=== PATIENT | female | born 1980 | race Caucasian/White ===

== ENCOUNTER 2017-02-21 03:18 | Emergency (ER) | payer OTHER ==
[2017-02-21 03:18] VITALS: BMI 20.6
[2017-02-21 03:31] VITALS: RESP 14; TEMP 98.4
--- NOTE | 2017-02-21 04:18 | C.PDOC ---
History Of Present Illness 37 y/o female, with no significant PMHx, presents to the ED for evaluation of burning sensation to bilateral eyes. Pt states she was cleaning with chlorox, and accidentally sprayed some into her eyes. Also complaints of frontal headache. Otherwise, denies visual changes, swelling, redness, dizziness, nausea , vomiting, or fever. Time Seen by Provider: 02/21/17 03:38 Chief Complaint (Nursing): Eye Problem History Per: Patient History/Exam Limitations: no limitations Onset/Duration Of Symptoms: Hrs Current Symptoms Are (Timing): Still Present Injury To Eye?: No Quality: "Pain" Associated Symptoms: Itching. denies: Decreased Vision, Swelling, FB Sensation , Discharge From Eye Recent travel outside of the [place]: No Additional History Per: Patient Past Medical History Reviewed: Historical Data, Nursing Documentation, Vital Signs Vital Signs: Last Vital Signs Temp 98.4 F 02/21/17 03:23 Pulse 80 02/21/17 06:10 Resp 14 02/21/17 06:10 BP 110/80 02/21/17 06:10 Pulse Ox 99 02/21/17 06:10 - Medical History PMH: Diabetes ("I THINK SO") Denies: Chronic Kidney Disease Surgical History: - [facility] Procedures SUTURE VAGINA LACERATION (06/04/14) Family History: States: Unknown Family Hx - Social History Hx Tobacco Use: Yes Hx Alcohol Use: No Hx Substance Use: No - Immunization History Hx Tetanus Toxoid Vaccination: No Hx Influenza Vaccination: No Hx Pneumococcal Vaccination: No Review Of Systems Except As Marked, All Systems Reviewed And Found Negative. Constitutional: Negative for: Fever, Chills Eyes: Positive for: Pain (burning sensation). Negative for: Vision Change, Conjunctivae Inflammation, Eyelid Inflammation, Redness Gastrointestinal: Negative for: Nausea, Vomiting Neurological: Positive for: Headache. Negative for: Weakness, Numbness, Dizziness Physical Exam - Physical Exam Appears: Non-toxic, No Acute Distress Skin: Normal Color, Warm, Dry Head: Atraumatic, Normacephalic Eye(s): bilateral: Normal Inspection (Normal conjunctiva), PERRL, EOMI Neck: Normal ROM, Supple Chest: Symmetrical Extremity: Normal ROM Neurological/Psych: Oriented x3, Normal Speech, Normal Cognition ED Course And Treatment O2 Sat by Pulse Oximetry: 98 Pulse Ox Interpretation: Normal Progress Note: Pt was given Toradol. On re-exam at 6:00, patient reports feeling much better after irrigation with normal saline. States her symptoms have resolved. Disposition - Disposition Referrals: Abdon Posada [Staff Provider] - Disposition: HOME/ ROUTINE Disposition Time: 06:08 Condition: IMPROVED Instructions: [facility] (ED) Forms: General Discharge Instructions - Clinical Impression Clinical Impression: Irritation of both eyes - Scribe Statement The provider has reviewed the documentation as recorded by the Scribe Francesca Capone All medical record entries made by the Udayibe were at my direction and personally dictated by me. I have reviewed the chart and agree that the record accurately reflects my personal performance of the history, physical exam, medical decision making, and the department course for this patient. I have also personally directed, reviewed, and agree with the discharge instructions and disposition.
[2017-02-21] MEDS ORDERED: Fluorescein 1 mg Ophthalmic Strip ONE (04:29)
[2017-02-21] MEDS ORDERED: Tetracaine 0.5% Ophth (OR ONLY) ONE (04:29)
[2017-02-21 06:10] VITALS: BP 110/80; PULSE 80
[2017-02-28 23:21] VITALS: O2SAT 98
== END 2017-02-21 06:08 | disposition home or self-care (01) ==
LOC: C.ER 03:18
DX: H57.8 Other specified disorders of eye and adnexa (principal)
CPT/HCPCS: 96372; 99284; J1885

== ENCOUNTER 2018-02-26 18:45 | Emergency (ER) | payer OTHER ==
[2018-02-26 18:57] VITALS: BMI 20.7
[2018-02-26 19:00] VITALS: BP 111/72; PULSE 76; RESP 18; TEMP 99.1; O2SAT 100
--- NOTE | 2018-02-26 19:39 | C.PDOC ---
History Of Present Illness 38 y/o female presents to the ER complaining of right thumb pain for 1 week. Patient states that the pain began when she pushed a housekeeping cart and vacuum at the same time and felt her thumb bend back a week ago. Since then, pt notes she has pain with certain movement and putting pressure on it. Denies having weakness and numbness. Right hand dominant. Time Seen by Provider: 02/26/18 19:02 Chief Complaint (Nursing): Finger,Hand,&Wrist History Per: Patient History/Exam Limitations: no limitations Onset/Duration Of Symptoms: Days Current Symptoms Are (Timing): Still Present Past Medical History Reviewed: Historical Data, Nursing Documentation, Vital Signs Vital Signs: Last Vital Signs Temp 99.1 F 02/26/18 18:58 Pulse 76 02/26/18 18:58 Resp 18 02/26/18 18:58 BP 111/72 02/26/18 18:58 Pulse Ox 100 02/26/18 20:00 - Medical History PMH: Diabetes ("I THINK SO") Denies: Chronic Kidney Disease Surgical History: - [facility] Procedures SUTURE VAGINA LACERATION (06/04/14) Family History: States: No Known Family Hx - Social History Hx Tobacco Use: Yes Hx Alcohol Use: No Hx Substance Use: No - Immunization History Hx Tetanus Toxoid Vaccination: No Hx Influenza Vaccination: No Hx Pneumococcal Vaccination: No Review Of Systems Except As Marked, All Systems Reviewed And Found Negative. Musculoskeletal: Positive for: Other (right thumb pain) Neurological: Negative for: Weakness, Numbness Physical Exam - Physical Exam Appears: Non-toxic, No Acute Distress Skin: Normal Color, Warm, Dry Head: Atraumatic, Normacephalic Eye(s): bilateral: Normal Inspection, EOMI Nose: Normal Oral Mucosa: Moist Neck: Normal ROM, Supple Chest: Symmetrical Respiratory: No Accessory Muscle Use Extremity: No Normal ROM (aggravation with flexion of left first digit), Tenderness (tenderness to 1st MCP joint of left hand), Capillary Refill (<2 sec) , No Swelling Extremity: Bilateral: Normal Color And Temperature Pulses: Left Radial: Normal, Right Radial: Normal Neurological/Psych: Oriented x3, Normal Speech, Normal Sensation ED Course And Treatment O2 Sat by Pulse Oximetry: 100 (RA) Pulse Ox Interpretation: Normal Progress Note: X-Ray- Left Thumb ordered. SPlint applied by tire maintenance technician. Instructed to follow up with hand specialist in 1-2 days. Disposition - Disposition Referrals: Aarti Shoemaker MD [Staff Provider] - Disposition: HOME/ ROUTINE Disposition Time: 19:59 Condition: STABLE Additional Instructions: Follow up with your primary medical doctor or clinic in 2-5 days for further evaluation. Take medications as prescribed. Return to the emergency department at any time if symptoms persist or worsen. Prescriptions: Ibuprofen [Motrin] 400 mg PO Q6 PRN #20 tab PRN Reason: Fever Instructions: Finger Sprain (DC) Forms: [employer] (Uzbek), Work Excuse - Clinical Impression Clinical Impression: Thumb sprain - PA / DISABILITY RATER / Resident Statement MD/DO has reviewed & agrees with the documentation as recorded. - Scribe Statement The provider has reviewed the documentation as recorded by the Udayiblily Menchaca Provider Attestation All medical record entries made by the Udayibe were at my direction and personally dictated by me. I have reviewed the chart and agree that the record accurately reflects my personal performance of the history, physical exam, medical decision making, and the department course for this patient. I have also personally directed, reviewed, and agree with the discharge instructions and disposition.
[2018-02-26] MEDS ORDERED: Naproxen 550 mg Tab PO STA (20:01)
[2018-02-26] MEDS ORDERED: Naproxen 550 mg Tab PO ONE (20:06)
--- NOTE | 2018-02-27 09:27 | RAD ---
Date of service: 02/26/2018 PROCEDURE: Left Thumb radiographs. HISTORY: INJURY COMPARISON: None. TECHNIQUE: AP radiograph of the left hand, as well as spot oblique and lateral images of thumb were obtained. FINDINGS: LEFT THUMB: Normal left thumb, without fracture or focal lesion. Remainder of the left hand (as seen on the AP view) grossly unremarkable. JOINTS: Normal. SOFT TISSUES: Normal. OTHER FINDINGS: None. IMPRESSION: Normal left thumb radiographs.
== END 2018-02-26 20:09 | disposition home or self-care (01) ==
LOC: C.ER 18:45
DX: S63.602A Unspecified sprain of left thumb, initial encounter (principal); X50.0XXA Overexertion from strenuous movement or load, initial encounter; Y93.E9 Activity, other interior property and clothing maintenance; Y92.89 Other specified places as the place of occurrence of the external cause; Y99.8 Other external cause status

== ENCOUNTER 2018-03-07 08:27 | Emergency (ER) | payer OTHER ==
[2018-03-07 08:28] VITALS: BMI 20.7
[2018-03-07 08:36] VITALS: BP 103/67; PULSE 64; RESP 18; TEMP 98.5; O2SAT 99
--- NOTE | 2018-03-07 08:58 | C.PDOC ---
History Of Present Illness 38 year old female presents to ED for evaluation of itchy rash to left wrist and inner forearm that she noticed after waking up this morning. Patient also complains of burning sensation to left thumb ongoing since last ER visit. Notes she was seen here last week for work related injury to left thumb and had a splint applied. Notes taking Ibuprofen for pain. 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 Denies any new injury, weakness, numbness, or fever. Time Seen by Provider: 03/07/18 08:36 Chief Complaint (Nursing): Abnormal Skin Integrity History Per: Patient History/Exam Limitations: no limitations Onset/Duration Of Symptoms: Days Current Symptoms Are (Timing): Still Present Location Of Injury: Left: Forearm, Wrist Quality Of Symptoms: Itching. denies: Swollen Recent travel outside of the [place]: No Additional History Per: Patient Past Medical History Reviewed: Historical Data, Nursing Documentation, Vital Signs Vital Signs: Last Vital Signs Temp 98.5 F 03/07/18 08:33 Pulse 64 03/07/18 08:33 Resp 18 03/07/18 08:33 BP 103/67 03/07/18 08:33 Pulse Ox 99 03/07/18 09:05 - Medical History PMH: Diabetes ("I THINK SO") Denies: Chronic Kidney Disease Surgical History: - [facility] Procedures SUTURE VAGINA LACERATION (06/04/14) Family History: States: Unknown Family Hx - Social History Hx Tobacco Use: Yes Hx Alcohol Use: No Hx Substance Use: No - Immunization History Hx Tetanus Toxoid Vaccination: No Hx Influenza Vaccination: No Hx Pneumococcal Vaccination: No Review Of Systems Except As Marked, All Systems Reviewed And Found Negative. Constitutional: Negative for: Fever, Chills Musculoskeletal: Positive for: Hand Pain (left thumb) Skin: Positive for: Rash (left wrist, forearm) Neurological: Negative for: Weakness, Numbness Physical Exam - Physical Exam Appears: Non-toxic, No Acute Distress Skin: Warm, Dry, Rash (erythematous papular rash to left wrist and forearm, no vesicles) Head: Atraumatic, Normacephalic Eye(s): bilateral: Normal Inspection Oral Mucosa: Moist Extremity: No Normal ROM (painful flexion of left thumb), No Tenderness (no tenderness to left wrist or forearm), Capillary Refill (less than 2 seconds), No Deformity, No Swelling Pulses: Left Radial: Normal Neurological/Psych: Oriented x3, Normal Speech ED Course And Treatment O2 Sat by Pulse Oximetry: 99 (RA) Pulse Ox Interpretation: Normal Medical Decision Making Medical Decision Making: Impression: contact dermatitis and tendonitis Thumb spica splint applied by mechanical technical service specialist. Prednisone PO prescribed for both problems. Patient advised to rest thumb and follow up with orthopedic if the symptoms persists. Disposition Counseled Patient/Family Regarding: Diagnosis, Need For Followup - Disposition Referrals: Edison Zhao III, MD [Staff Provider] - Disposition: HOME/ ROUTINE Disposition Time: 09:10 Condition: STABLE Additional Instructions: Take Benadryl or apply cortisone for rash Keep splint in place for 1 week to help with tendonitis. Take Prednisone to help with both rash and hand pain Follow up with orthopedic if pain persists over one week. Prescriptions: predniSONE [predniSONE Tab] 40 mg PO DAILY #10 tab Instructions: Contact Dermatitis (DC), Tendonitis (DC) Forms: [employer] (Italian) - POA Present On Arrival: None - Clinical Impression Clinical Impression: Contact dermatitis, Tendonitis - PA / TELECINE OPERATOR / Resident Statement MD/DO has reviewed & agrees with the documentation as recorded. - Scribe Statement The provider has reviewed the documentation as recorded by the Scribe Francesca Capone All medical record entries made by the Scribe were at my direction and personally dictated by me. I have reviewed the chart and agree that the record accurately reflects my personal performance of the history, physical exam, medical decision making, and the department course for this patient. I have also personally directed, reviewed, and agree with the discharge instructions and disposition.
== END 2018-03-07 09:11 | disposition home or self-care (01) ==
LOC: C.ER 08:27
DX: L25.9 Unspecified contact dermatitis, unspecified cause (principal); M77.9 Enthesopathy, unspecified